=== PATIENT | female | born 1965 | race Caucasian/White ===

== ENCOUNTER 2017-03-20 23:20 | Emergency (ER) | payer OTHER ==
[~2017-03-20] VITALS: Ht 162.6 cm; Wt 66.5 kg
[2017-03-20 23:42] LABS: ADD MIUA? NO; BILIRUBIN NEGATIVE; BLOOD NEGATIVE; COLOR STRAW ((YELLOW)); GLUCOSE (STRIP) NEGATIVE; KETONES NEGATIVE; LEUKOCYTES NEGATIVE; NITRITE NEGATIVE; PROTEIN (STRIP) NEGATIVE; SPECIFIC GRAVITY 1.006 (1.000-1.030); UCUL ADDED? NO; UROBILINOGEN 0.2 MG/DL (0.2-1.0)
[2017-03-21 00:22] LABS: CHLORIDE 108 mEq/L (99-109); POTASSIUM 4.1 mEq/L (3.7-5.4); SODIUM 140 mEq/L (136-147)
[2017-03-21 00:23] LABS: HEMATOCRIT 38.9 % (36.0-46.0); MCH 29.7 PG (29.0-34.0); MCHC 33.9 G/DL (30.0-36.0); MCV 87.4 FL (83-99); MEAN PLAT.VOLUME 9.4 uM^3 (9.5-12.4); PLATELET COUNT 319 K/uL (156-360); RBC DIS.WIDTH-CV 13.2 % (11.8-14.6); RBC DIS.WIDTH-SD 42.9 % (39-53); RED BLOOD COUNT 4.45 M/uL (3.80-5.20); WHITE BLOOD COUNT 7.2 K/uL (4.1-10.2)
[2017-03-21 00:24] LABS: GLUCOSE 97 mg/dL (70-99); IMM.PLATELET FRACTION 1.5 (1-7)
[2017-03-21 00:25] LABS: ANION GAP 9 MEQ/L (2-14)
[2017-03-21 00:26] LABS: TOTAL BILIRUBIN 0.2 mg/dL (0.0-1.0)
[2017-03-21 00:27] LABS: ALKALINE PHOSPHATASE 50 IU/L (3-129)
[2017-03-21 00:28] LABS: GFR ESTIMATE (CALCULATED) > 59 mL/min/
[2017-03-21 00:29] LABS: UREA NITROGEN (BUN) 15 mg/dL (9-23)
[2017-03-21 00:36] LABS: QUANTITATIVE HCG < 4.0 MIU/ML
[2017-03-21 05:06] VITALS: BP 138/74
== END 2017-03-21 05:06 | disposition home or self-care (01) ==
LOC: EME 23:20 → EXP 23:20
DX: R10.31 Right lower quadrant pain (principal); R19.00 Intra-abdominal and pelvic swelling, mass and lump, unspecified site
CPT/HCPCS: 74177; 80053; 81003; 84702; 85027; 99281; 99284; J7030